=== PATIENT | male | born 1950 | race Caucasian/White ===

== ENCOUNTER 2024-04-23 06:21 | Day surgery (SDC) | payer OTHER, SELFPAY ==
[2024-04-14 09:07] VITALS: BMI 33.6
[2024-04-14 09:26] LABS: % Basophils 0.5 % (0-2); % Eosinophils 3.6 % (0-6); % Immature Granulocytes 0.2 % (0-0.5); % Lymphocytes 22.3 % (20.5-51.1); % Monocytes 9.7 % (1.7-9.3); % Neutrophils 63.7 % (42.2-75.2); Absolute Eosinophils 0.2 10^3/uL (0-0.7); Absolute Lymphocytes 1.3 10^3/uL (1.2-3.4); Absolute Monocytes 0.6 10^3/uL (0.1-0.6); Absolute Neutrophils 3.7 10^3/uL (1.4-6.5); Hematocrit 39.1 % (39.0-52.0); Hemoglobin 13.5 g/dL (13.0-18.0); Mean Corp Hgb Conc. 34.5 g/dL (33.0-37.0); Mean Corpuscular Hgb 33.3 pg (27.0-31.0); Mean Corpuscular Volume 96.3 fL (80.0-94.0); Mean Platelet Volume 10.9 fL (7.4-10.4); Nucleated Red Blood Cells % 0 % (-); Platelet Count 146 10^3/uL (130-400); Red Blood Cell Count 4.06 10^6/uL (4.70-6.10); Red Cell Dist. Width 13.1 % (11.5-14.5); White Blood Cell Count 5.8 10^3/uL (4.8-10.8)
[2024-04-14 09:47] LABS: ALT (SGPT) 22 U/L (0-50); AST (SGOT) 24 U/L (17-59); Albumin 4.4 g/dl (3.5-5.0); Alkaline Phosphatase 72 U/L (38-126); Blood Urea Nitrogen 25 mg/dl (9-20); Calcium 9.7 mg/dl (8.4-10.2); Carbon Dioxide 29 mmol/L (22-30); Chloride 100 mmol/L (98-107); Estimated Creatinine Clearance 83 ml/min; Glucose 123 mg/dl (70-99); Potassium 4.1 mmol/L (3.5-5.1); Sodium 141 mmol/L (135-145); Total Bilirubin 0.7 mg/dl (0.2-1.3); Total Protein 6.6 g/dl (6.3-8.2); eGFR > 60.00
[2024-04-23] VITALS (16 sets, daily range): BP systolic 135–166; BP diastolic 76–86; BMI 32.6
[2024-04-23] MEDS: LOW STRENGTH ASPIRIN 81 MG PO (07:00)
[2024-04-23] MEDS: NSS 309 ML IV (07:00)
[2024-04-23] MEDS: NSS 1000 IV (08:20)
--- NOTE | 2024-04-23 08:31 | ITS.CL.CATH ---
Teaching Manager - Catheterization
Cardiac Catheterization
Procedure Report:
CARDIAC CATHETERIZATION REPORT
Date of Procedure: 04/23/2024
Referring: Hernandez Davis MD
Indication: Recurrent angina 10 years following CABG x 3 with mildly abnormal stress test
�
HEMODYNAMIC DATA
AO: 175/67
LV: 175/21
�
LEFT VENTRICULOGRAPHY: Normal segmental wall motion with EF 53%
�
CORONARY ANGIOGRAPHY
Dominance: Right
Left Main: Very mild distal tapering
LAD: There is a long 80% proximal LAD stenosis. The mid and distal LAD fill antegrade and via a widely patent LACI graft. There is no disease in the LAD distal to the LACI graft touchdown site.
Circumflex: There is a large bifurcating ramus intermedius branch with 40% stenosis proximal to the bifurcation site. The larger daughter branch fills antegrade. The slightly smaller daughter branch fills via a patent proximal limb of a sequential
vein graft with no significant disease distal to the touchdown site. The circumflex proper has 95% ostial stenosis and diffuse mid disease including subtotal occlusion distal to the takeoff of OM 2. OM1, OM 2, and OM 3 are all chronically occluded
vessels and there is left to left collateral filling of a small distal OM 3.
RCA: 90% proximal l stenosis with mid RCA occlusion distal to the takeoff of the large acute marginal branch. A small diseased PDA and RPL fill via [id number] collaterals the angiographic appearance of the RCA is similar to the prior
preoperative study from 2013.
Bypass grafts:
1. The left internal mammary graft to the LAD is widely patent with excellent distal runoff
2. The sequential vein graft to the ramus intermedius and obtuse marginal branch is patent with trivial luminal irregularities to the ramus intermedius branch touchdown site with good runoff. The continuation of the sequential graft to the obtuse
marginal branch is proximally occluded.
�
Closure Device: 6 Irish Angio-Seal RFA
�
Radiation (mGy): 432
DAP (cm2.Gy): 37.6
Fluoroscopy time: 4.3 minutes
�
CONCLUSIONS
1:�Systemic hypertension
2:�Normal left ventricular function with EF 53%
3. 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 The second segment of the saphenous vein graft to the obtuse marginal branch is occluded at its origin
4. Recommend medical therapy with continued beta-kelvin and addition of isosorbide mononitrate 30 mg daily. If he has lifestyle limiting angina despite maximally tolerated antianginal therapy, then ostial circumflex PCI can be attempted in the
hope that this might improve symptoms. Rosuvastatin has been increased to 20mg in attempt to get LDL below 55
�
�
Copy to: Hernandez Davis MD, Malissa Aly DO ([place], [place])
�
Memo Anderson MD, FAC, [facility]
== END 2024-04-23 11:30 | disposition home or self-care (01) ==
LOC: CATH 06:21
PROVIDERS: ATTENDING PHYSICIAN Internal Medicine Cardiovascular Disease; FAMILY PHYSICIAN Internal Medicine; OTHER PHYSICIAN Internal Medicine Clinical Cardiac Electrophysiology
DX: I25.119 Atherosclerotic heart disease of native coronary artery with unspecified angina pectoris (principal); Z95.1 Presence of aortocoronary bypass graft; I10 Essential (primary) hypertension; E78.5 Hyperlipidemia, unspecified; E66.9 Obesity, unspecified; Z68.33 Body mass index [BMI] 33.0-33.9, adult; Z79.82 Long term (current) use of aspirin
CPT/HCPCS: 36415; 80053; 85025; 93005; 93459; C1760; C1894; Q9967

== ENCOUNTER → 2024-06-20 08:24 | Outpatient (REF) | payer OTHER, SELFPAY | LOC: RAD 08:24 | PROVIDERS: ATTENDING PHYSICIAN Internal Medicine | DX: I65.23 Occlusion and stenosis of bilateral carotid arteries (principal) | CPT/HCPCS: 93880 ==